=== PATIENT | male | born 1975 | race Caucasian/White ===

== ENCOUNTER 2018-08-10 16:34 | Emergency (ER) | payer MEDICAID, MEDICARE | END 2018-08-10 17:15 | disposition home or self-care (01) | LOC: NAV ERS 16:34 | DX: H60.92 Unspecified otitis externa, left ear (principal); E11.9 Type 2 diabetes mellitus without complications; I10 Essential (primary) hypertension; F20.9 Schizophrenia, unspecified; F17.210 Nicotine dependence, cigarettes, uncomplicated; Z79.4 Long term (current) use of insulin; Z79.899 Other long term (current) drug therapy | CPT/HCPCS: 99282 ==

== ENCOUNTER 2019-01-31 11:42 | Emergency (ER) | payer MEDICARE, MEDICAID | END 2019-01-31 12:14 | disposition home or self-care (01) | LOC: NAV ERS 11:42 | DX: L03.114 Cellulitis of left upper limb (principal); L03.113 Cellulitis of right upper limb; L03.221 Cellulitis of neck; L03.311 Cellulitis of abdominal wall; E11.9 Type 2 diabetes mellitus without complications; E78.5 Hyperlipidemia, unspecified; I10 Essential (primary) hypertension; F20.9 Schizophrenia, unspecified; F17.210 Nicotine dependence, cigarettes, uncomplicated; Z79.899 Other long term (current) drug therapy; Z79.4 Long term (current) use of insulin | CPT/HCPCS: 99282 ==